=== PATIENT | male | born 1965 | race Caucasian/White ===

== ENCOUNTER → 2018-08-03 | Outpatient (CLI) | payer OTHER ==
[~2018-08-03] MED LIST: BP MED; CEPH500 PO; CHOLESTEROL MED; LISHYD1012 PO; LISI5 PO; NEBI10 PO; NEBI5 PO; SIMV40 PO; VENL25 PO; Zocor20 MG PO
[2018-08-03 16:07] LABS: Microalb/Creat Ratio UR, Rand 6.097 mg/g (0.000-30.000); Microalbumin, Random Urine 7.56 mg/L (0.000-20.000)
== END | disposition home or self-care (01) ==
LOC: LAB SHORT 13:56 → LAB EV 13:56
PROVIDERS: Physician Assistant
DX: I10 Essential (primary) hypertension (principal)
CPT/HCPCS: 82043; 82570

== ENCOUNTER 2023-03-03 08:45 | Day surgery (SDC) | payer OTHER ==
[~2023-03-03] VITALS: Ht 185.4 cm; Wt 81.8 kg
[2023-03-03 10:59] VITALS: BP 104/78
== END 2023-03-03 10:53 | disposition home or self-care (01) ==
LOC: ORSCSDS 08:45
PROVIDERS: Internal Medicine Gastroenterology
PROC: 0DBP8ZX Excision of Rectum, Via Natural or Artificial Opening Endoscopic, Diagnostic (ICD-10-PCS; principal; 2023-03-03 10:15)
DX: Z12.11 Encounter for screening for malignant neoplasm of colon (principal); Z86.010 Personal history of colon polyps; Z80.0 Family history of malignant neoplasm of digestive organs; K62.1 Rectal polyp; K57.30 Diverticulosis of large intestine without perforation or abscess without bleeding; K64.8 Other hemorrhoids; Z79.82 Long term (current) use of aspirin; Z79.899 Other long term (current) drug therapy
CPT/HCPCS: 88305; J2704; J7120